=== PATIENT | male | born 1995 | race Caucasian/White ===

== ENCOUNTER 2018-08-10 22:08 | Emergency (ER) | payer OTHER ==
[~2018-08-10] VITALS: Ht 182.9 cm; Wt 68.0 kg
[2018-08-10] MEDS ORDERED: KETO10 PO (22:58)
== END 2018-08-10 23:10 | disposition home or self-care (01) ==
LOC: ER 22:08
DX: S61.215A Laceration without foreign body of left ring finger without damage to nail, initial encounter (principal); Z87.891 Personal history of nicotine dependence; Z23 Encounter for immunization; W26.8XXA Contact with other sharp object(s), not elsewhere classified, initial encounter
CPT/HCPCS: 12001; 90471; 90714; 99282-25

== ENCOUNTER 2018-08-24 18:52 | Emergency (ER) | payer OTHER ==
[~2018-08-24] VITALS: Ht 182.9 cm; Wt 68.0 kg
[~2018-08-24 18:52] MED LIST: KETO10 PO
== END 2018-08-24 19:23 | disposition home or self-care (01) ==
LOC: ER 18:52
DX: S61.215D Laceration without foreign body of left ring finger without damage to nail, subsequent encounter (principal); Z87.891 Personal history of nicotine dependence